=== PATIENT | male | born 1980 | race Caucasian/White ===

== ENCOUNTER 2018-05-09 11:21 | Emergency (ER) | payer OTHER ==
[~2018-05-09] VITALS: Ht 188 cm; Wt 81.8 kg
[~2018-05-09 11:21] MED LIST: HYDR-565 PO; NO HOME MEDS; PENI500T2 PO
[2018-05-09 11:33] VITALS: BP 156/76
[2018-05-09] MEDS ORDERED: CLIN300C17 PO (12:37)
== END 2018-05-09 13:32 | disposition home or self-care (01) ==
LOC: ER 11:22
DX: K04.7 Periapical abscess without sinus (principal); G89.29 Other chronic pain; F12.90 Cannabis use, unspecified, uncomplicated; F19.90 Other psychoactive substance use, unspecified, uncomplicated; Z56.0 Unemployment, unspecified; Z98.890 Other specified postprocedural states; Z86.14 Personal history of Methicillin resistant Staphylococcus aureus infection; Z79.899 Other long term (current) drug therapy
CPT/HCPCS: 99283

== ENCOUNTER 2021-11-06 17:10 | Emergency (ER) | payer MEDICAID ==
[~2021-11-06] VITALS: Ht 188 cm; Wt 81.8 kg
[~2021-11-06 17:10] MED LIST changes: +CLIN300C17 PO; -HYDR-565 PO; -PENI500T2 PO
[2021-11-06 17:27] VITALS: BP 132/89
[2021-11-06] MEDS ORDERED: ketorolac trometh. 30mg/ml inj. IM ONE (18:25)
[2021-11-06] MEDS ORDERED: LIDOcaine 1% 30ml preserv. free vial IJ ONE (18:25)
[2021-11-06] MEDS ORDERED: orphenadrine citrate 60mg/2ml inj. IM ONE (18:25)
[2021-11-06] MEDS ORDERED: IBUP-1986 PO (18:29)
[2021-11-06] MEDS ORDERED: CYCL-1 PO (18:29)
[2021-11-06] MEDS ORDERED: LIDOcaine 1%/PF 5ML 10 MG/ML VIAL IM ONE (18:50)
== END 2021-11-06 19:44 | disposition home or self-care (01) ==
LOC: ER 17:11
DX: S39.012A Strain of muscle, fascia and tendon of lower back, initial encounter (principal); X58.XXXA Exposure to other specified factors, initial encounter; Y93.89 Activity, other specified; Y92.89 Other specified places as the place of occurrence of the external cause; Y99.8 Other external cause status
CPT/HCPCS: 96372; 99284; J1885; J2360

== ENCOUNTER 2022-05-02 09:03 | Emergency (ER) | payer MEDICAID ==
[~2022-05-02] VITALS: Ht 188 cm; Wt 8.0 kg
[~2022-05-02 09:03] MED LIST changes: +CYCL-1 PO; +IBUP-1986 PO
[2022-05-02 10:12] VITALS: BP 135/85
[2022-05-02] MEDS ORDERED: ibuprofen tablet 400 MG TABLET PO ONE (12:40)
== END 2022-05-02 13:17 | disposition home or self-care (01) ==
LOC: ER 09:04
DX: M62.838 Other muscle spasm (principal); M25.512 Pain in left shoulder; G89.29 Other chronic pain; F12.90 Cannabis use, unspecified, uncomplicated; F19.90 Other psychoactive substance use, unspecified, uncomplicated; Z86.14 Personal history of Methicillin resistant Staphylococcus aureus infection; Z98.890 Other specified postprocedural states; Z56.0 Unemployment, unspecified; Z79.2 Long term (current) use of antibiotics; Z79.899 Other long term (current) drug therapy
CPT/HCPCS: 73030; 99284

== ENCOUNTER 2023-02-24 12:21 | Emergency (ER) | payer MEDICAID, OTHER ==
[~2023-02-24] VITALS: Ht 188 cm; Wt 84.1 kg
[2023-02-24 13:03] VITALS: BP 142/92
[2023-02-24] MEDS ORDERED: LIDOcaine 1% W/epiNEPHrine 1:100,000 20ml vial IJ ONE (14:00)
[2023-02-24] MEDS ORDERED: TETanus/Pertussis (Acell)/Diphther VAC/PF (Tdap-Adult) 0.5ml syringe IMVAC ONE (14:00)
[2023-02-24] MEDS ORDERED: CEPH250T PO (14:33)
== END 2023-02-24 15:36 | disposition home or self-care (01) ==
LOC: ER 12:22
DX: S61.011A Laceration without foreign body of right thumb without damage to nail, initial encounter (principal); G89.29 Other chronic pain; M54.9 Dorsalgia, unspecified; Z86.14 Personal history of Methicillin resistant Staphylococcus aureus infection; X58.XXXA Exposure to other specified factors, initial encounter; Y93.89 Activity, other specified; Y92.89 Other specified places as the place of occurrence of the external cause; Y99.8 Other external cause status
CPT/HCPCS: 10060; 12001; 90471; 90715; 99283

== ENCOUNTER 2023-03-01 06:47 | Emergency (ER) | payer SELFPAY ==
[~2023-03-01] VITALS: Ht 175.3 cm; Wt 81.8 kg
[~2023-03-01 06:47] MED LIST changes: +CEPH250T PO
[2023-03-01 06:54] VITALS: BP 143/80
[2023-03-01 07:06] LABS: BASOPHILS % (AUTO) 0.7 % (0-1); EOSINOPHILS # (AUTO) 0.2 X10'3 (0-0.9); EOSINOPHILS % (AUTO) 3.9 % (0-6); HEMATOCRIT 46.2 % (42.0-52.0); HEMOGLOBIN 15.8 g/dl (14.0-17.9); LYMPHOCYTES # (AUTO) 1.1 X10'3 (1.1-4.8); LYMPHOCYTES % (AUTO) 17.9 % (21-51); MEAN CORPUSCULAR HEMOGLOBIN 29.7 PG (27.0-31.0); MEAN CORPUSCULAR HGB CONC 34.2 g/dL (33.0-36.5); MEAN CORPUSCULAR VOLUME 86.8 FL (78-98); MEAN PLATELET VOLUME 8.7 FL (7.4-10.4); MONOCYTES # (AUTO) 0.6 X10'3 (0-0.9); MONOCYTES % (AUTO) 10.3 % (2-12); NEUTROPHILS % (AUTO) 67.2 % (42-75); PLATELET COUNT 247 X10'3 (140-440); RED BLOOD COUNT 5.32 X10'6 (4.70-6.10); RED CELL DISTRIBUTION WIDTH 13.9 % (11.5-14.5)
[2023-03-01 07:21] LABS: ALANINE AMINOTRANSFERASE 18 U/L (12-78); ALBUMIN 3.8 G/DL (3.4-5.0); ALBUMIN/GLOBULIN RATIO 1.2 (1.1-1.5); ALKALINE PHOSPHATASE 95 IU/L (46-116); ANION GAP 10 (8-16); ASPARTATE AMINO TRANSFERASE 20 U/L (10-37); BILIRUBIN,TOTAL 0.4 MG/DL (0.1-1.0); BLOOD UREA NITROGEN 9 MG/DL (7-18); BUN/CREATININE RATIO 9.4 (10.0-20.0); CALCIUM 8.7 MG/DL (8.5-10.1); CHLORIDE 105 MMOL/L (99-107); CREATININE 0.96 MG/DL (0.60-1.10); GLUCOSE 107 MG/DL (70-104); POTASSIUM 3.8 MMOL/L (3.5-5.1); SODIUM 139 MMOL/L (135-145); TOTAL CARBON DIOXIDE 24.2 MMOL/L (24-32); TOTAL PROTEIN 7.1 G/DL (6.4-8.2); eGFR 87 ML/MIN
[2023-03-01 08:01] LABS: APTT 29 SECONDS (22-32)
== END 2023-03-01 09:22 | disposition home or self-care (01) ==
LOC: ER 06:48
DX: R07.89 Other chest pain (principal); R11.0 Nausea; M25.512 Pain in left shoulder; R20.0 Anesthesia of skin; G89.29 Other chronic pain; F12.90 Cannabis use, unspecified, uncomplicated; Z86.14 Personal history of Methicillin resistant Staphylococcus aureus infection; Z98.890 Other specified postprocedural states; Z56.0 Unemployment, unspecified; Z79.2 Long term (current) use of antibiotics; Z79.899 Other long term (current) drug therapy
CPT/HCPCS: 36415; 71045; 80053; 83880; 84484; 85025; 85610; 85730; 93005; 99285

== ENCOUNTER 2023-08-23 09:53 | Emergency (ER) | payer SELFPAY ==
[~2023-08-23] VITALS: Ht 188 cm; Wt 75.1 kg
[~2023-08-23 09:53] MED LIST changes: -CEPH250T PO
[2023-08-23] MEDS ORDERED: oxyCODONE/APAP 5-325mg tablet PO ONE (12:00)
[2023-08-23] MEDS ORDERED: ketorolac trometh. 30mg/ml inj. IM ONE (12:00)
[2023-08-23] MEDS ORDERED: PENI-88 PO (12:06)
[2023-08-23] MEDS ORDERED: IBUP-1986 PO (12:06)
[2023-08-23 12:26] VITALS: BP 163/96; PULSE 89; RESP 18; TEMP 97.9; O2SAT 98
== END 2023-08-23 12:30 | disposition home or self-care (01) ==
LOC: ER 09:54
DX: K00.6 Disturbances in tooth eruption (principal); G89.29 Other chronic pain; M54.9 Dorsalgia, unspecified; F12.10 Cannabis abuse, uncomplicated; Z86.14 Personal history of Methicillin resistant Staphylococcus aureus infection; Z79.899 Other long term (current) drug therapy
CPT/HCPCS: 96372; 99283; J1885